=== PATIENT | female | born 1955 | race Caucasian/White ===

== ENCOUNTER 2017-01-24 16:55 | Outpatient (CLI) | payer MEDICARE, OTHER ==
[~2017-01-24] VITALS: Ht 167.6 cm; Wt 81.8 kg
[~2017-01-24 16:55] MED LIST: ANTIVERT12.5 MG PO; BENADRYL25 MG PO; DEPADE50 MG; GABAPENTIN100 MG PO; LIBRAX CAPSULE1 CAP; PRILOSEC20 MG PO; PROZAC20 MG PO; SYNTHROID75 MCG PO; VITAMIN B-121000 MCG PO; XANAX0.5 MG PO; ZOFRAN4 MG PO
[2017-01-24 17:51] VITALS: BP 143/53; Ht 167.6 cm; Wt 81.8 kg
== END 2017-01-24 18:02 | disposition home or self-care (01) ==
LOC: D.OPS 16:55 → D.MS 17:24 → D.OPS 18:02
DX: E86.0 Dehydration (principal)

== ENCOUNTER 2017-02-25 15:45 | Outpatient (CLI) | payer MEDICARE, OTHER ==
[~2017-02-25] VITALS: Ht 167.6 cm; Wt 84.1 kg
[2017-02-25 16:33] VITALS: BP 130/70; Ht 167.6 cm; Wt 84.1 kg
--- NOTE | 2017-02-25 17:03 | NUR ---
1635-PORT ACCESSED WITH 20G 1 INCH STEWART NEEDLE USING STERILE TECHNIQUE. FLUSHED WITH 20CC NORMAL SALINE AND 5CC HEP FLUSH. 1640-PROCEDURE ENDED 1645-DISCHARGE INSTRUCTIONS REVIEWED 1650-D/C VIA WHEELCHAIR
== END 2017-02-25 16:50 | disposition home or self-care (01) ==
LOC: D.OPS 15:45
DX: E86.0 Dehydration (principal)

== ENCOUNTER 2017-03-09 10:46 | Inpatient (IN) | payer MEDICARE, OTHER ==
[~2017-03-09] VITALS: Ht 167.6 cm; Wt 77.3 kg
--- NOTE | ~2017-03-09 | EEG ---
PATIENT:AVA GRAY DATE OF SERVICE: 03/09/17 MEDICAL RECORD: [id number] DATE OF : 55 LOCATION:D.223 D.MS ADMISSION DATE: 03/09/17 REFERRING PHYSICIAN: INTERPRETING PHYSICIAN: DEVANTE RAJPUT MD DATE OF SERVICE: 03/11/2017 Electroencephalographic Report Referred by myself as an inpatient, currently in room 2238. ELECTROENCEPHALOGRAM NUMBER: [id number]. DATE OF EXAMINATION: 03/11/2017 at 1:15 p.m. TECHNICAL DATA: This electroencephalographic recording consists of approximately 20 minutes of data collection utilizing the international 10/20 system of electrode placement and both referential and non-referential montages. Sixteen channels of electrocerebral recording are accompanied by a 17th channel dedicated to the electrocardiographic rhythm and 2 channels of electromyographic recording. Recording is performed in the awake and drowsy states utilizing activation by photic stimulation. ELECTROENCEPHALOGRAPHIC DATA: The awake state comprises approximately 70% of the recorded electrocerebral activity. Electromyographic artifact is prominent and rapid eye movements are seen. The posterior dominant background consists of a symmetric semi-arrhythmic waxing and waning 6-7 Hz theta activity, which is suppressed by eye opening. The drowsy state comprises the remaining portion of the recorded electrocerebral activity. Electromyographic artifact is diminished and rapid eye movements are not seen. The posterior dominant background is relatively suppressed. No focal slowing is identified. No epileptiform discharges are seen. Photic stimulation induces no abnormal change in the recorded electrocerebral activity. INTERPRETATION: Background slow (awake and drowsy). This electroencephalographic recording is indicative of a mild diffuse encephalopathy. TRANSINT:[id number] Voice Confirmation ID: [id number] DOCUMENT ID: [id number] DEVANTE RAJPUT MD CC: [id number] DICTATION DATE: 03/12/17 07 TECHNOLOGY EDUCATION TEACHER: 03/12/17 0841 ADM IN [facility] [address] [place] [address]
[2017-03-09 12:14] LABS: BASOPHILS 0.2 % (0.0-2.0); EOSINOPHILS 0.5 % (0-7); HEMATOCRIT 34.5 % (36.0-48.0); HEMOGLOBIN 11.2 g/dL (12-16); IMMATURE GRANULOCYTES 0.2 % (0-5); LYMPHOCYTES 11.6 % (15-50); MCH 30.2 pg (26.0-34.0); MCHC 32.5 g/dL (31.0-37.0); MEAN PLATELET VOLUME 9.6 fL (7.4-10.4); MONOCYTES 9.3 % (2-11); NEUTROPHILS 78.2 % (40-80); PLATELET COUNT 212 10x3/uL (130-400); RBC 3.71 10x6/uL (4.00-5.40); RDW 13.3 % (11.5-14.5); WBC 6.6 10x3/uL (4.8-10.8)
[2017-03-09 12:17] LABS: UDS - AMPHET NEGATIVE QUAL (NEGATIVE); UDS - BARB NEGATIVE QUAL (NEGATIVE); UDS - BENZO POSITIVE QUAL (NEGATIVE); UDS - COCAINE NEGATIVE QUAL (NEGATIVE); UDS - METH NEGATIVE QUAL (NEGATIVE); UDS - OPIATE NEGATIVE QUAL (NEGATIVE); UDS - PCP NEGATIVE QUAL (NEGATIVE); UDS - THC NEGATIVE QUAL (NEGATIVE)
[2017-03-09 12:40] LABS: APPEARANCE CLEAR (CLEAR); BILIRUBIN NEGATIVE (NEGATIVE); COLOR YELLOW (YELLOW); EPITHELIAL CELLS OCC /hpf (0-5); GLUCOSE NEGATIVE (NEGATIVE); KETONE SMALL mg/dL (NEGATIVE); LEUKOCYTE ESTERASE 1+ (NEGATIVE); NITRITE POSITIVE (NEGATIVE); PROTEIN 1+ mg/dL (NEGATIVE); RED CELLS - URINE 0-5 /hpf (0-5); SPECIFIC GRAVITY 1.005 (1.005-1.020); UROBILINOGEN NORMAL (NORMAL)
[2017-03-09 12:40] LABS: ALBUMIN 3.3 g/dL (3.4-5.0); ANION GAP 17.4 mmol/L (8-16); BILIRUBIN - TOTAL 0.26 mg/dL (0.2-1.3); CALCIUM 8.7 mg/dL (8.5-10.1); CARBON DIOXIDE 19.9 mmol/L (21.0-32.0); CREATININE - SERUM 1.4 mg/dL (0.6-1.3); POTASSIUM - SERUM 3.3 mmol/L (3.5-5.1); PROTEIN - SERUM 7.3 g/dL (6.4-8.2)
[2017-03-09 12:41] LABS: AMORPHOUS SEDIMENT >1+ /lpf (NONE SEEN); BACTERIA MANY /hpf (NONE SEEN); TRIPLE PHOSPHATE CRYSTALS 0-5 /hpf (NONE SEEN)
[2017-03-09 17:39] VITALS: BP 141/65; Ht 167.6 cm; Wt 77.3 kg
--- NOTE | 2017-03-09 18:00 | NUR ---
PATIENT LAUGHING VERY LOUD, THEN STARTED CRYING, STATED "I CANNOT BELIEVE HE CAN DO SOMETHING LIKE THAT." PATIENT CONTINUED TO CRY LOUDER AND HARDER. I STATED "WHO?" SHE STATED "DEVANTE ELLINGTON"
--- NOTE | 2017-03-09 19:00 | NUR ---
PATIENT SUPINE IN BED. HOB 30 DEGREES. PATIENT IS AWAKE AND ALERT BUT VERY CONFUSED. RR EVEN AND UNLABORED. STATES THAT PAIN IS A 10/10 IN HER LOWER BACK. RIGHT PORT PATENT WITH DRESSING CDI. IZZY ALARM ON. AT BEDSIDE.
[2017-03-09 20:00] VITALS: BP 150/70
--- NOTE | 2017-03-09 21:00 | NUR ---
ASSISTED PATIENT TO BATHROOM. PATIENT NOT WEAK BUT DIZZY. PATIENT HAD BM. NOW BACK IN BED.
--- NOTE | 2017-03-09 23:00 | NUR ---
IN OUT CATH OF PATIENT'S UROSTOMY YIELDED 150ML.
[2017-03-10] VITALS: BP 158/75
--- NOTE | 2017-03-10 03:00 | NUR ---
IN OUT CATH YIELDED 200ML.
[2017-03-10 04:00] VITALS: BP 147/73
--- NOTE | 2017-03-10 06:00 | NUR ---
MORNING MEDS GIVEN. PATIENT RELUCTANT TO TAKE THEM BUT PERSUADED HER. NO CHANGE IN MENTAL STATUS. PATIENT DID NOT SLEEP AT ALL THROUGHOUT THE NIGHT.
[2017-03-10 06:39] LABS: BASOPHILS 0.3 % (0.0-2.0); EOSINOPHILS 0.5 % (0-7); HEMATOCRIT 31.7 % (36.0-48.0); HEMOGLOBIN 10.4 g/dL (12-16); IMMATURE GRANULOCYTES 0.3 % (0-5); LYMPHOCYTES 12.9 % (15-50); MCH 30.4 pg (26.0-34.0); MCHC 32.8 g/dL (31.0-37.0); MCV 92.7 fL (80.0-100.0); MEAN PLATELET VOLUME 9.6 fL (7.4-10.4); MONOCYTES 10.6 % (2-11); NEUTROPHILS 75.4 % (40-80); PLATELET COUNT 215 10x3/uL (130-400); RBC 3.42 10x6/uL (4.00-5.40); RDW 13.5 % (11.5-14.5); WBC 6.5 10x3/uL (4.8-10.8)
[2017-03-10 07:02] LABS: ALBUMIN 2.9 g/dL (3.4-5.0); ANION GAP 12.8 mmol/L (8-16); BILIRUBIN - TOTAL 0.3 mg/dL (0.2-1.3); CALCIUM 8.6 mg/dL (8.5-10.1); CARBON DIOXIDE 20.7 mmol/L (21.0-32.0); CREATININE - SERUM 1.5 mg/dL (0.6-1.3); MAGNESIUM - SERUM 1.9 mg/dL (1.8-2.4); PHOSPHOROUS 2.5 mg/dL (2.5-4.9); POTASSIUM - SERUM 3.5 mmol/L (3.5-5.1); PROTEIN - SERUM 6.3 g/dL (6.4-8.2); THYROID STIMULATING HORMONE 5.44 uIU/mL (0.36-3.74)
--- NOTE | 2017-03-10 07:57 | NUR ---
PT CONFUSED TO SURROUNDINGS AND HAPPENINGS. AT BEDSIDE. RESP EVEN AND NONLABORED PT AND PT FAMILY DENIES NEEDS AT THIS TIME BED AT LOWEST SETTING CALL LIGHT WITHIN REACH WILL CONTINUE TO MONITOR
[2017-03-10 08:01] VITALS: BP 142/71
--- NOTE | 2017-03-10 14:34 | NUR ---
Patient Name: AVA GRAY Admission Status: ER Accout number: [id number] Admission Date: 03-09-2017 : 1955 Admission Diagnosis: Attending: KELSEY Current LOS: 1 Anticipated DC Date: 03-16-2017 Planned Disposition: Home Primary Insurance: MEDICARE A & B Discharge Planning Comments: CM MET WITH PATIENT AND MOTHER (YUE) REGARDING D/C NEEDS AND PLANS. PATIENT NOT ABLE TO ANSWER QUESTIONS (REPETITIVE SPEECH). MOTHER STATED PATIENT LIVES WITH HER SPOUSE (LATHA) AND HE WILL DRIVE HER HOME AT DISCHARGE. THERE ARE 3 STEPS TO ENTER HOME AND NO STAIRS ONCE INSIDE. MOTHER STATED PATIENT WAS INDEPENDENT WITH HER CARE AND HAS A WHEELCHAIR AND WALKER AT HOME IF NEEDED. PATIENTS PCP IS DR. MOON AND PHARMACY IS UNKNOWN AT THIS TIME. PATIENT HAS NOT HAD HOME HEALTH AND MOTHER UNSURE OF WHAT IS NEEDED AT THIS TIME. CM WILL CONTINUE TO FOLLOW PATIENT WITH D/C NEEDS AND PLANS. PCP DR. MOON PHARMACY ??? YUE ANTONIO (MOM) [phone] LATHA (SPOUSE) [phone] Marriage And Family Social Worker: Camille Duffy Is the patient Alert and Oriented? No 0 * How many steps to enter\exit or inside your home? 3 0 * PCP DR. MOON 0 * Pharmacy MOTHER DID NOT KNOW 0 * Preadmission Environment Home with Family 0 * ADLs Independent 0 * Equipment Walker Wheelchair 0 * List name and contact numbers for known caregivers / representatives who currently or will assist patient after discharge: YUE ANTONIO (MOM) [phone] LATHA (SPOUSE) [phone] * Community resources currently utilized None 0 * Additional services required to return to the preadmission environment? Yes 0 * Can the patient safely return to the preadmission environment? Yes 0 * Has this patient been hospitalized within the prior 30 days at any hospital? No 0 Grand Total: 0
[2017-03-10 15:44] VITALS: BP 142/79
--- NOTE | 2017-03-10 19:00 | NUR ---
PATIENT SUPINE IN BED. HOB 30 DEGREES. AWAKE AND ALERT BUT CONFUSED. RR EVEN AND UNLABORED. STATES PAIN IS A 3/10. RIGHT PORT PATENT WITH DRESSING CDI. SCD'S ON. IZZY MAT ON. MOM AT BEDSIDE. ATTEMPTED TO IN AND OUT CATH PER ORDER BUT MOTHER STATED THAT IT WAS DONE AT 1630 AND THAT WAS THE ONLY TIME IT WAS DONE ALL DAY. EXPLAINED THAT I WOULD WAIT THE FOUR HOURS UNTIL ABOUT 2100 AND RESTART THE CATH SCHEDULE.
[2017-03-10 20:00] VITALS: BP 150/79
--- NOTE | 2017-03-10 21:30 | NUR ---
IN AND OUT CATH YIELDED 450ML. TYLENOL GIVEN FOR PAIN AND ATIVAN GIVEN FOR ANXIETY. STATED THAT THE PATIENT, WHEN AT HOME, DID NOT WAKE UP DURING THE NIGHT TO CATH AND HE BELIEVED THAT SHE REALLY NEEDS TO SLEEP. WILL SKIP 0130 CATH AND RESUME AT 0530.
--- NOTE | 2017-03-11 02:00 | NUR ---
PATIENT SLEEPING WITH NO DISTRESS NOTED. AT BEDSIDE.
[2017-03-11 04:00] VITALS: BP 157/83
--- NOTE | 2017-03-11 05:30 | NUR ---
IN AND OUT CATH YIELDED 750. PATIENT AWAKE BUT SEEMS TO BE LESS AGITATED.
[2017-03-11 06:46] LABS: BASOPHILS 0.5 % (0.0-2.0); EOSINOPHILS 1.7 % (0-7); HEMATOCRIT 29.8 % (36.0-48.0); HEMOGLOBIN 9.6 g/dL (12-16); IMMATURE GRANULOCYTES 0.7 % (0-5); LYMPHOCYTES 26.7 % (15-50); MCH 29.9 pg (26.0-34.0); MCHC 32.2 g/dL (31.0-37.0); MCV 92.8 fL (80.0-100.0); MEAN PLATELET VOLUME 9.5 fL (7.4-10.4); MONOCYTES 13.6 % (2-11); NEUTROPHILS 56.8 % (40-80); PLATELET COUNT 205 10x3/uL (130-400); RBC 3.21 10x6/uL (4.00-5.40); RDW 13.5 % (11.5-14.5); WBC 4.2 10x3/uL (4.8-10.8)
[2017-03-11 07:08] LABS: ALBUMIN 2.7 g/dL (3.4-5.0); ANION GAP 15.8 mmol/L (8-16); BILIRUBIN - TOTAL 0.29 mg/dL (0.2-1.3); CARBON DIOXIDE 18.1 mmol/L (21.0-32.0); CREATININE - SERUM 1.2 mg/dL (0.6-1.3); POTASSIUM - SERUM 3.9 mmol/L (3.5-5.1); PROTEIN - SERUM 6.1 g/dL (6.4-8.2)
--- NOTE | 2017-03-11 08:09 | NUR ---
AWAKE AND ALERT. ORIENTED X3. C/O BACK PAIN AT THIS TIME. AT BEDSIDE. LUNGS ARE CLEAR BILATERALLY, NO COUGH NOTED. SKIN IS INTACT WITHOUT REDNESS. RIGHT PORT PATENT WITHOUT REDNESS AT INSERTION SITE. DENIES NEEDS AT THIS TIME.
[2017-03-11 08:50] VITALS: BP 154/81
--- NOTE | 2017-03-11 09:07 | NUR ---
REQUESTED AND GIVEN 0.5 MG ATIVAN SLOW IVP FOR SIGNS OF AGITATION. WILL MONITOR.
[2017-03-11 12:59] VITALS: BP 144/61
[2017-03-11 14:49] LABS: GLUCOSE - CSF 54 MG/DL (40-75); PROTEIN - CSF 37 MG/DL (12-60)
[2017-03-11 15:31] LABS: APPEARANCE - CSF CLEAR; RBC - CSF 0 cmm (0-0)
--- NOTE | 2017-03-11 16:30 | NUR ---
IN/OUT CATH PER STAFF. 550cc CLEAR YELLOW URINE RETURNED. 24 HOUR URINE STARTED AT THIS TIEM. AT BEDSIDE. DENIES NEEDS. ATE 100% OF FOOD TRAY AT THIS TIME. NO CHANGES NOTED.
[2017-03-11 16:33] VITALS: BP 127/72
[2017-03-11 19:00] VITALS: BP 116/58
[2017-03-12 00:23] VITALS: BP 116/52
--- NOTE | 2017-03-12 01:46 | NUR ---
ASSESSED AT THE BEGINNING OF THE SHIFT. PT IS ALERT AND ORIENTED ABLE TO VERBALIZE NEEDS. FAMILY WAS AT THE BEDSIDE AT THE FIRST OF THE SHIFT. SHE HAS BEEN UP TO THE BATHROOM WITH ASSIST TO SELF CATH AT HER OSTOMY SITE. THERE IS A 24 HR URINE GOING AND SHE IS AWARE OF IT AND CALLS FOR ASSIST. FAMILY LEFT AT BEDTIME. THE BED IS LOW, RAILS UP X'2 WITH THE CALL LIGHT AT HAND.
[2017-03-12 04:00] VITALS: BP 132/46
[2017-03-12 06:55] LABS: BASOPHILS 0.9 % (0.0-2.0); EOSINOPHILS 3.8 % (0-7); HEMATOCRIT 29.4 % (36.0-48.0); HEMOGLOBIN 9.5 g/dL (12-16); IMMATURE GRANULOCYTES 1.2 % (0-5); LYMPHOCYTES 34.6 % (15-50); MCH 30.1 pg (26.0-34.0); MCHC 32.3 g/dL (31.0-37.0); MEAN PLATELET VOLUME 9.7 fL (7.4-10.4); MONOCYTES 9.5 % (2-11); PLATELET COUNT 202 10x3/uL (130-400); RBC 3.16 10x6/uL (4.00-5.40); RDW 13.4 % (11.5-14.5); WBC 4.2 10x3/uL (4.8-10.8)
[2017-03-12 07:05] LABS: ANION GAP 14.6 mmol/L (8-16); CALCIUM 8.1 mg/dL (8.5-10.1); CARBON DIOXIDE 19.7 mmol/L (21.0-32.0); POTASSIUM - SERUM 4.3 mmol/L (3.5-5.1)
--- NOTE | 2017-03-12 08:03 | NUR ---
AWAKE AND ALERT. ORIENTED X3. NO C/O AT THIS TIME. JUST COMPLETED SELF CATH WITH 100cc CLOUDY YELLOW URINE. LUNGS ARE CLEAR BILATERALLY,NO COUGH NOTED. SKIN IS INTACT WITHOUT REDNESS. RIGHT PORT IS PATENT WITHOUT REDNESS AT INSERITON SITE. DENIES NEEDS. AT BEDSIDE.
[2017-03-12 08:20] VITALS: BP 119/59
[2017-03-12 12:55] VITALS: BP 109/65
[2017-03-12 16:37] VITALS: BP 117/59
--- NOTE | 2017-03-12 18:48 | NUR ---
ATE ABOUT HALF OF SUPPER. AMBULATED IN HALLWAY WITH . NO C/O AT THIS TIME. NO CHANGES NOTED.
[2017-03-12 20:00] VITALS: BP 120/61
[2017-03-12 20:07] LABS: ACID FAST SMEAR Negative (()); AFB SPECIMEN PROCESSING Not Indicated (())
[2017-03-13] VITALS: BP 130/53
--- NOTE | 2017-03-13 00:39 | NUR ---
Recieved patient and report at 1900. patient alert and oriented X 4, Right port patent, dressing CDI, bed in low locked position, siderails up X 2, call light and water in reach, CPOC.
[2017-03-13 04:00] VITALS: BP 114/50
[2017-03-13 07:00] LABS: BASOPHILS 1.3 % (0.0-2.0); HEMATOCRIT 31.4 % (36.0-48.0); HEMOGLOBIN 10.3 g/dL (12-16); IMMATURE GRANULOCYTES 0.8 % (0-5); LYMPHOCYTES 34.7 % (15-50); MCH 30.3 pg (26.0-34.0); MCHC 32.8 g/dL (31.0-37.0); MCV 92.4 fL (80.0-100.0); MEAN PLATELET VOLUME 9.4 fL (7.4-10.4); MONOCYTES 9.7 % (2-11); NEUTROPHILS 50.5 % (40-80); PLATELET COUNT 219 10x3/uL (130-400); RDW 13.4 % (11.5-14.5); WBC 4.7 10x3/uL (4.8-10.8)
[2017-03-13 07:11] LABS: CALCIUM 8.3 mg/dL (8.5-10.1); CARBON DIOXIDE 19.2 mmol/L (21.0-32.0); CREATININE - SERUM 1.1 mg/dL (0.6-1.3); POTASSIUM - SERUM 4.2 mmol/L (3.5-5.1)
--- NOTE | 2017-03-13 07:30 | NUR ---
AWAKE AND ALERT. ORIENTED X3. NO C/O AT THIS TIME. REPORTS SELF CATH THIS AM. LUNGS ARE CLEAR BILATERALLY, NO COUGH NOTED. SKIN IS INTACT WITHOUT REDNESS. RIGHT PORT PATENT WITHOUT REDNESS AT INSERTION SITE. AT BEDSIDE. DENIES NEEDS.
--- NOTE | 2017-03-13 09:00 | NUR ---
ATE OVER HALF OF BREAKFAST. NO C/O AT THIS TIME. AMBULATED IN HALLWAY IW OVER 100 FEET.
[2017-03-13 10:07] VITALS: BP 101/47
[2017-03-13 12:50] VITALS: BP 112/53
[2017-03-13] MEDS ORDERED: CEFUROXIME250 MG PO (12:56)
--- NOTE | 2017-03-13 15:16 | NUR ---
PATIENT DISCHARGED TO HOME AMBULATORY WITH FAMILY. DISCHARGE INSTRUCTIONS GIVEN BOTH VERBALLY AND WRITTEN. ALL QUESTIONS ANSWERED. BOTH PATIENT AND VERBALIZED UNDERSTANDING OF SAME. NEEDED PRESCRIPTIONS EFAXED TO PHARMACY OF CHOICE. RIGHT PORT HEPRANIZED AND THEN DEACCESSED.
[2017-03-14 13:12] LABS: FUNGUS STAIN Final report (())
[2017-03-14 16:12] LABS: IGGS - IGG INDEX CSF 0.6 (0.0-0.7); IGGS - IGG SYNTHESIS RATE CSF 0.9 mg/day (-9.9 TO +3.3)
--- NOTE | 2017-03-16 08:01 | DS ---
PATIENT:AVA GRAY :55 MEDICAL RECORD: [id number] DISCHARGE SUMMARY ADMISSION DATE: 03/09/17 DISCHARGE DATE: 03/13/17 DATE OF ADMISSION: 03/09/2017 DATE OF DISCHARGE: 03/13/2017 ADMISSION DIAGNOSES: Acute mental status change, possible drug reaction to baclofen and Nucynta, lumbar radiculopathy, dehydration and hypokalemia. DISCHARGE DIAGNOSES: Acute apparent language disorder with echolalia repetitive speech, abnormal MRI and EEG changes, acute encephalopathy, resolved, and urinary tract infection. CONSULTS: Ayan Dang MD PROCEDURES: Lumbar puncture, no significant findings. EEG, MRI head. HOSPITAL COURSE: The patient was admitted, increased confusion, repetitive speech. Neurology consulted. Multiple testing done, no significant findings other than the EEG changes and borderline changes on MRI. The patient's symptoms have completely resolved. She had been cleared for discharge by neurology, Dr. Dang. Further workup as an outpatient. The patient is discharged home in significantly improved condition. Agree with the assessment from neurology. PHYSICAL EXAMINATION: VITAL SIGNS ON DISCHARGE: Temperature 98.8, heart rate 66, respirations 16, blood pressure is 130/53, and O2 sat 96% on room air. GENERAL: Tolerating regular diet, ambulating independently. Alert, oriented, no acute distress. Answers appropriately. HEART: Regular rate and rhythm. LUNGS: Clear. ABDOMEN: Soft. EXTREMITIES: Present times 4. NEUROLOGIC: No focal deficits. LABORATORY DATA: CBC on discharge, white count 4.7, hemoglobin 10.3, hematocrit 31.4, and platelets 219. The patient will follow up with Dr. Nichols later this week. DISCHARGE MEDICATIONS: Per med rec. Please see chart for further details. TRANSINT:[id number] Voice Confirmation ID: [id number] DOCUMENT ID: [id number] DISCHARGE SUMMARY REPORT [id number] MARINAAVA SOLORIO PETRONA ANDINO DO at 0801 CC: [id number] DICTATION DATE: 03/13/17 1254 VICE CHAIR: 03/13/17 2310 DIS IN 03/13/17 [facility] [address] [place] [address]
== END 2017-03-13 15:17 | disposition home or self-care (01) | DRG 689 ==
LOC: D.ER 10:46 → D.MS 16:00
PROVIDERS: Family Medicine; Psychiatry & Neurology Neurology; Radiology Diagnostic Radiology; ADMIT Family Medicine
PROC: 009U3ZX Drainage of Spinal Canal, Percutaneous Approach, Diagnostic (ICD-10-PCS; principal; 2017-03-11 13:52)
DX: N39.0 Urinary tract infection, site not specified (principal); G93.40 Encephalopathy, unspecified; F80.9 Developmental disorder of speech and language, unspecified; E86.0 Dehydration; E87.6 Hypokalemia; G35 Multiple sclerosis; R48.8 Other symbolic dysfunctions; G89.29 Other chronic pain; M54.5 Low back pain

== ENCOUNTER 2017-04-12 14:21 | Outpatient (CLI) | payer MEDICARE, OTHER ==
[~2017-04-12 14:21] MED LIST changes: +CEFUROXIME250 MG PO
[2017-04-12] MEDS ORDERED: MECLIZINE HCL25 MG PO (15:16)
[2017-04-12 15:20] VITALS: BP 145/77; Ht 167.6 cm
--- NOTE | 2017-04-12 15:22 | NUR ---
1450-ACCESSED PORT TO RIGHT UPPER CHEST UNDER ASEPTIC TECHNIQUE WITH 20G 3/4 INCH STEWART. BRISK BLOOD RETURN WITH FLUSH OF 10CC NRMAL SALINE AND 5CC, 500U HEPARIN. NEEDLE DISCONTINUED, BANDAID APPLIED-TOLERATED PROCEDURE WELL. 1510-TOM ZIPPER TRIMMER HAND FROM MED SURG FLOOR HERE TO SPEAK WITH PATIENT. 1520-PT. ESCORTED VIA WHEELCHAIR TO PERSONAL CAR.
== END 2017-04-12 15:20 ==
LOC: D.OPS 14:21
DX: E86.0 Dehydration (principal)

== ENCOUNTER 2017-05-12 14:57 | Outpatient (CLI) | payer MEDICARE, OTHER ==
[~2017-05-12] VITALS: Ht 167.6 cm; Wt 84.1 kg
[~2017-05-12 14:57] MED LIST changes: +MECLIZINE HCL25 MG PO
[2017-05-12] MEDS ORDERED: AMBIEN10 MG PO (15:31)
[2017-05-12 15:34] VITALS: BP 133/57; Ht 167.6 cm; Wt 84.1 kg
== END 2017-05-12 15:48 | disposition home or self-care (01) ==
LOC: D.OPS 14:57
DX: E86.0 Dehydration (principal)

== ENCOUNTER 2017-06-14 13:35 | Outpatient (CLI) | payer MEDICARE, OTHER ==
[~2017-06-14 13:35] MED LIST changes: +AMBIEN10 MG PO
[2017-06-14 14:36] VITALS: BP 141/71; Ht 167.6 cm
--- NOTE | 2017-06-14 14:42 | NUR ---
1400-ACCESSED PORT UNDER ASEPTIC TECHNIQUE, USED 20G 3/4 INCH STEWART NEEDLE. BRISK BLOOD RETURN, FLUSHED EASILY WITH 10CC NS AND 500U, 5CC HEPARIN.
== END 2017-06-14 14:15 ==
LOC: D.OPS 13:35
DX: E86.0 Dehydration (principal)

== ENCOUNTER → 2017-08-23 11:39 | Outpatient (CLI) | payer MEDICARE, OTHER ==
[~2017-08-23] VITALS: Ht 167.6 cm; Wt 81.8 kg
[2017-08-23 13:15] VITALS: BP 120/63; Ht 167.6 cm; Wt 81.8 kg
--- NOTE | 2017-08-23 13:16 | NUR ---
1200-PT. ACCESSED UNDER STERILE TECHNIQUE PORT ON RIGHT SIDE OF CHEST WITH 3/4 INCH 20G STEWART NEEDLE. BRISK BLOOD RETURN WITH NORMAL SALINE AND HEPARIN FLUSH TO FINISH. STEWART NEEDLE DISCONTINUED, BANDAID APPLIED.
== END | disposition home or self-care (01) ==
LOC: D.OPS 11:39
DX: E86.0 Dehydration (principal); Z45.2 Encounter for adjustment and management of vascular access device

== ENCOUNTER 2017-10-07 16:02 | Outpatient (CLI) | payer MEDICARE, OTHER ==
[2017-10-07 17:05] VITALS: BP 125/78; BMI 24.2
--- NOTE | 2017-10-07 17:35 | NUR ---
1645 PORT ACCESSED UNDER STERILE TECHIQUE ON RIGHT CHEST AREA WITH I INCH 19 G STEWART NEEDLE , GOOD BLOOD RETURN ,PORT FLUSHED WITH NORMAL SALINE AND HEPRIN FLUSH . STEWART NEEDLE REMOVED AND BANDAID APPLIED
== END 2017-10-07 17:45 | disposition home or self-care (01) ==
LOC: D.OPS 16:02
DX: E86.0 Dehydration (principal)

== ENCOUNTER 2018-01-13 15:15 | Outpatient (CLI) | payer MEDICARE, OTHER ==
[2018-01-13 16:16] VITALS: BP 133/67; Ht 167.6 cm
== END 2018-01-13 16:00 ==
LOC: D.OPS 15:15
DX: E86.0 Dehydration (principal)

== ENCOUNTER 2018-02-16 14:28 | Outpatient (CLI) | payer MEDICARE, OTHER ==
[~2018-02-16] VITALS: Ht 167.6 cm; Wt 86.4 kg
[2018-02-16 14:51] VITALS: BP 109/81; Ht 167.6 cm; Wt 86.4 kg
== END 2018-02-16 15:09 | disposition home or self-care (01) ==
LOC: D.OPS 14:28
DX: E86.0 Dehydration (principal)

== ENCOUNTER → 2018-03-09 18:27 | Outpatient (CLI) | payer MEDICARE, OTHER ==
[2018-02-16 14:51] VITALS: BMI 30.7
== END | disposition home or self-care (01) ==
LOC: D.MAMMO 14:30
DX: N64.4 Mastodynia (principal)

== ENCOUNTER 2018-03-21 13:59 | Outpatient (CLI) | payer MEDICARE, OTHER ==
[~2018-03-21] VITALS: Ht 167.6 cm; Wt 81.8 kg
[2018-03-21 14:20] VITALS: Ht 167.6 cm; Wt 81.8 kg
== END 2018-03-21 14:25 | disposition home or self-care (01) ==
LOC: D.OPS 13:59
DX: E86.0 Dehydration (principal)

== ENCOUNTER 2018-04-27 12:41 | Outpatient (CLI) | payer MEDICARE, OTHER ==
[~2018-04-27] VITALS: Ht 167.6 cm; Wt 88.6 kg
[2018-04-27 13:20] VITALS: BP 128/57; Ht 167.6 cm; Wt 88.6 kg
== END 2018-04-27 13:35 | disposition home or self-care (01) ==
LOC: D.MAMMO 12:41
DX: N64.4 Mastodynia (principal); E86.0 Dehydration

== ENCOUNTER → 2018-06-21 14:11 | Outpatient (CLI) | payer MEDICARE, OTHER ==
[~2018-06-21] VITALS: Ht 167.6 cm; Wt 90.0 kg
[2018-06-21 15:00] VITALS: Ht 167.6 cm; Wt 90.0 kg
== END | disposition home or self-care (01) ==
LOC: D.OPS 14:11
DX: E86.0 Dehydration (principal)

== ENCOUNTER 2018-08-30 15:54 | Outpatient (CLI) | payer MEDICARE, OTHER ==
[~2018-08-30] VITALS: Ht 167.6 cm; Wt 90.9 kg
[2018-08-30 16:21] VITALS: BP 129/53; Ht 167.6 cm; Wt 90.9 kg
== END 2018-08-30 16:35 | disposition home or self-care (01) ==
LOC: D.OPS 15:54
DX: E86.0 Dehydration (principal)

== ENCOUNTER → 2019-05-01 12:30 | Outpatient (CLI) | payer MEDICARE, OTHER ==
[2018-08-30 16:21] VITALS: BMI 32.3
== END | disposition home or self-care (01) ==
LOC: D.MAMMO 12:30
PROVIDERS: ATTEND Family Medicine
DX: Z12.31 Encounter for screening mammogram for malignant neoplasm of breast (principal)